=== PATIENT | female | born 1940 | race Caucasian/White ===

== ENCOUNTER 2016-08-27 10:47 | Emergency (ER) | payer MEDICARE, BC ==
[2016-08-27] MEDS ORDERED: PANTOPRAZOLE SODIUM IV 40 MG VIAL IV ONE (12:24)
--- NOTE | 2016-08-27 13:51 | CT ---
EXAM DESCRIPTION: CT ABDOMEN AND PELVIS WITH CONTRAST CLINICAL HISTORY: LLQ AB PAIN, GI BLEEDING COMPARISON: I directly compared with CT chest dated April 12, 2015 TECHNIQUE: CT of the abdomen and pelvis are performed during IV bolus administration of 100 mL of IV contrast. FINDINGS: The lung bases are clear of infiltrate. The liver is diffusely inhomogeneous in density consistent with geographic fatty infiltration. This is stable since 2015. There is no focal hepatic mass. Gallbladder is present and unremarkable by CT. Spleen, pancreas, and kidneys are unremarkable. There is no lymphadenopathy, inflammation, or free fluid observed. IMPRESSION: 1. Geographic fatty infiltration of the liver stable since remote previous 2. Otherwise unremarkable Electronically signed by: Rogelio Mena MD 08/27/2016 1:51 PM AMBULANCE DRIVER
--- NOTE | 2016-08-27 14:45 | ED.PDOC ---
History of Present Illness - General Chief Complaint: GI Problem Stated Complaint: blood streaked stool since saturday Time Seen by Provider: 08/27/16 12:22 Information Source: patient Exam Limitations: no limitations - History of Present Illness Initial Comments: 75 YEAR OLD FEMALE ON XARELTO FOR AFIB REPORTS SEVERAL EPISODES OF BLOODY STOOLS OVER THE PAST 3 DAYS. PT DENIES, ABDOMINAL PAIN, DIZZINESS, OR SYNCOPE. Improving Factors: nothing Worsening Factors: nothing Review of Systems - Review of Systems Constitutional: Denies: chills, fever EENTM: Denies: blurred vision, throat pain Respiratory: Denies: cough, short of breath Cardiology: Denies: chest pain, palpitations Gastrointestinal/Abdominal: Denies: abdominal pain, diarrhea, nausea, vomiting Musculoskeletal: Denies: joint pain, joint swelling Neurological: States: no symptoms reported Endocrine: States: no symptoms reported Hematologic/Lymphatic: States: no symptoms reported Past Medical History (General) - Patient Medical History Hx Seizures: No Hx Stroke: No Hx Dementia: No Hx Asthma: No Hx of COPD: No Hx Cardiac Disorders: Yes - AFIB Hx Congestive Heart Failure: No Hx Pacemaker: No Hx Hypertension: Yes Hx Thyroid Disease: No Hx Diabetes: No Hx Gastroesophageal Reflux: No Hx Renal Disease: No Hx Cancer: No Hx of HIV: No Hx Hepatitis C: No Hx MRSA: No Surgical History: appendectomy, cholecystectomy, Hysterectomy - Vaccination History Hx Tetanus, Diphtheria Vaccination: Yes Hx Influenza Vaccination: Yes Hx Pneumococcal Vaccination: Yes Immunizations Up to Date: Yes - Social History Hx Tobacco Use: No Hx Chewing Tobacco Use: No Hx Alcohol Use: No Hx Substance Use: No Hx Substance Use Treatment: No Hx Depression: No Feels Threatened In Home Enviroment: No Feels Threatened In a Relationship: No Hx Physical Abuse: No Hx Emotional Abuse: No Hx Suspected Abuse: No - Female History Patient is a Female of Child Bearing Age (10 -59 yrs old): No Patient : No Family Medical History - Family History Mother Family History: No Known Living Status: Physical Exam - Physical Exam General Appearance: Alert, Comfortable, No apparent distress Eyes, Ears, Nose, Throat Exam: normal ENT inspection Neck: full range of motion, normal inspection Respiratory: lungs clear, normal breath sounds, no respiratory distress Cardiovascular/Chest: regular rate, rhythm, no murmur Gastrointestinal/Abdominal: soft, tenderness - LLQ ABDOMINAL TENDERNESS Rectal Exam: heme positive stool - GROSS BLOOD ON GLOVE Back Exam: normal inspection, no CVA tenderness Extremity: non-tender, normal inspection Neurologic: no motor/sensory deficits, alert, normal mood/affect, oriented x 3 Skin Exam: normal color, warm/dry Progress - Progress Progress: 08/27/16 14:46 PT CONTINUES TO REST COMFORTABLY, LABS AND CT FINDINGS DISCUSSED WITH PT. PT AGREES WITH PLAN TO TRANSFER TO [facility] FOR GI CONSULTATION FOR GI BLEEDING - Results/Orders Results/Orders: Laboratory Tests 08/27/16 08/27/16 11:55 13:50 WBC 6.4 RBC 3.61 L Hgb 11.6 L Hct 34.8 L MCV 96.2 MCH 32.1 H MCHC 33.4 RDW 13.9 Plt Count 164 MPV 8.5 Absolute Neuts (auto) 3.60 Absolute Lymphs (auto) 2.00 Absolute Monos (auto) 0.70 Absolute Eos (auto) 0.10 Absolute Basos (auto) 0.10 Neutrophils % 56.5 Lymphocytes % 30.8 Monocytes % 10.2 H Eosinophils % 1.7 Basophils % 0.8 PT 19.2 H INR 1.710 PTT (SP) 41.5 H Sodium 140 Potassium 4.3 Chloride 104 Carbon Dioxide 29 Anion Gap 11.3 L BUN 19 H Creatinine 0.82 BUN/Creatinine Ratio 23.2 H Random Glucose 108 H Serum Osmolality 282.2 Calcium 8.8 Total Bilirubin 0.4 AST 45 H ALT 51 Alkaline Phosphatase 47 Serum Total Protein 7.3 Albumin 3.6 Globulin 3.7 H Albumin/Globulin Ratio 1.0 L Stool Occult Blood Positive - EKG/XRAY/CT CT: CT ABD/PEL: FATTY LIVER PER RAD CT Ordered: Yes CT Interpretation Call Back: No Departure - Departure Clinical Impression: GI bleeding Qualifiers: GI bleed type/associated pathology: unspecified gastrointestinal hemorrhage type Qualifier Code: (K92.2) Gastrointestinal hemorrhage, unspecified Time of Disposition: 14:49 Disposition: Transfer to Hospital Condition: Good Departure Forms: ED Discharge - Pt. Copy, Patient Portal Self Enrollment Home Medications: Ambulatory Orders Alprazolam 0.5 mg PO BID 07/15/13 Atenolol 25 mg PO DAILY 07/15/13 B-Complex W/ Folic Acid [Super B Complex Maxi] 1 tab PO DAILY 07/15/13 Clorazepate Dipotassium 3.75 mg PO BEDTIME 07/15/13 HYDROcodone 5MG/APAP 325MG [[place] 5/325] 1 tab PO BEDTIME 07/15/13 Levothyroxine Sodium 125 mcg PO DAILY 07/15/13 Simvastatin 20 mg PO BEDTIME 07/15/13 Cholecalciferol [Vitamin D] 2,000 unit PO DAILY 01/28/16 Rivaroxaban [Xarelto] 20 mg PO BEDTIME 01/28/16 Estradiol 0.5 mg PO DAILY 03/27/16 Eszopiclone [Lunesta] 3 mg PO BEDTIME PRN 03/27/16 Cephalexin Monohydrate [Keflex] 500 mg PO BID #18 cap 03/29/16 Sotalol HCl [Betapace] 80 mg PO Q12HR #60 tab 03/29/16 Rivaroxaban [Xarelto] 20 mg PO 08/27/16 Transfer to Outside Facility - Transfer Information Accepting Provider:: DR. Waqas GAN Accepting Facility: [facility] Reason for Transfer: specialized care not available
[2016-08-27] MEDS ORDERED: SODIUM CHLORIDE 0.9% 1000ML 1,000 ML IVS ONE (14:50)
[2016-08-27 15:36] VITALS: TEMP 97
[2016-08-27 16:06] VITALS: BP 131/74; O2SAT 98
== END 2016-08-27 16:04 | disposition short-term general hospital (02) ==
LOC: ER 10:47
DX: K92.2 Gastrointestinal hemorrhage, unspecified (principal); I48.91 Unspecified atrial fibrillation; I10 Essential (primary) hypertension; Z79.02 Long term (current) use of antithrombotics/antiplatelets; Z79.899 Other long term (current) drug therapy
CPT/HCPCS: 36415; 74177; 80053; 82270; 85025; 85610; 85730; J7030

== ENCOUNTER 2016-09-21 10:48 | Inpatient (IN) | payer MEDICARE, BC ==
--- NOTE | 2016-09-21 10:51 | HP ---
SUPERVISING PHYSICIAN: Alex Quesada M.D. CHIEF COMPLAINT: Worsening pneumonia. HISTORY OF PRESENT ILLNESS: Ms. Mancini is a 75 year-old female patient of Dr. Le who was seen this past week in the clinic for upper respiratory symptoms diagnosed with right middle lobe pneumonia and having been started on Omnicef this past Saturday. She notes that she first started getting ill on the Saturday before her clinic visit and has shown very little improvement in her symptoms throughout the week with worsening cough as well as significant fever of 102 in the clinic. She notes that she has been in and out of the hospital since May and within the last 2 weeks at [facility]. Given that she has no significant improvement in her symptoms and continues to run a significant fever, she is now going to be admitted to the hospital for continued treatment and evaluation for escalation of her antibiotic therapy with concerns for right middle lobe pneumonia felt to be possibly healthcare acquired. PAST MEDICAL HISTORY: 1. Paroxysmal atrial fibrillation that was controlled initially with Rythmol and Atenolol after which she developed chronic atrial fibrillation in 2003. She underwent multiple cardioversions and ablation therapy with the last ablation being done on 07/13/16. The patient is on chronic anticoagulation with Xarelto. 2. Chronic obstructive pulmonary disease with an exacerbation with multiple hospitalizations required for pneumonia. 3. Hypothyroidism. 4. Chronic anxiety disorder controlled with Xanax and Chlorazepate. 5. Hyperlipidemia. 6. Osteoarthritis. 7. Hypertension. PAST SURGICAL HISTORY: 1. Tonsillectomy. 2. section times 4 in 1959, 1962, 1964 and 1965. 3. Hysterectomy in 1975. 4. Left knee replacement in 2007. 5. Excision of a squamous cell carcinoma in 2009. 6. Lumbar epidural steroid injection at L3-L4 by Dr. Stephen in 2010. 7. Hemilaminectomy at L4-L5 and decompression of L5 roots with foraminotomies at L4-L5 and L5-S1, excision of herniated nucleus pulposus by Dr. Jay Zacarias in 2011. 8. Right total hip arthroplasty performed by Dr. Guajardo in 2011. 9. Multiple ablations for paroxysmal atrial fibrillation with the last being in June of 2016. CURRENT MEDICATIONS: 1. Pantoprazole 40 mg twice daily. 2. Vitamin D 2,000 units daily. 3. Algin 4 mg daily. 4. Tramadol 50 mg at bedtime p.r.n. 5. Zaleplon 10 mg at bedtime. 6. Diltiazem 180 mg daily. 7. Lyrica 50 mg at bedtime. 8. Proventil nebs 2.5 mg t.i.d. 9. Breo ellipta 1 inhalation daily. 10. Betapace 80 mg every 12 hours. 11. Simvastatin 20 mg at bedtime. 12. Xarelto 20 mg daily at 5:00. 13. Levothyroxine sodium 0.125 mg at breakfast. 14. Estradiol 0.5 mg. 15. Super B complex folic acid 1 tablet daily. 16. Atenolol 25 mg daily. 17. Alprazolam 0.5 mg twice daily. ALLERGIES: LEVOFLOXACIN, CODEINE, CORTICOSTEROIDS, ZITHROMAX, NEURONTIN, PRADAXA AND SULFATE. FAMILY HISTORY: Father is at age 88, cause of was congestive heart failure, cardiovascular disease with coronary artery bypass graft at age 60 and again at 76, and hip fracture. Mother is at age 93, cause of was Alzheimer's, also had history of breast cancer. SOCIAL HISTORY: The patient is retired. She lives in [place]. She is . She has 3 children. She notes that she did smoke half pack of cigarettes for approximately 50 years but quit on 06/2013. She never drank alcohol. REVIEW OF SYSTEMS: CONSTITUTIONAL: Notable for fever and chills up to 102, denies any weight loss. HEENT: Positive for upper respiratory symptoms with some nasal congestion and a nonproductive cough. CARDIOVASCULAR: Paroxysmal atrial fibrillation with multiple ablations in the past. Denies any chest pains , palpitations or syncopal episodes. GASTROINTESTINAL: Denies any nausea or vomiting, diarrhea, constipation or abdominal pains. GENITOURINARY: Denies any dysuria, increased frequency of urination or other urinary symptoms. NEUROLOGIC : Denies any dizziness, syncopal episodes or other neurological symptoms. PHYSICAL EXAMINATION: VITAL SIGNS: Temperature 98.5, pulse 81, blood pressure 131/69, respirations 18 , O2 sat showing 90% on room air. Admission weight is 75.2 kg. GENERAL: The patient is resting in bed. She is in no acute distress. She is somewhat anxious. Alert and oriented times three. HEENT: Tympanic membranes are clear bilaterally. Oropharynx in pink and moist without any lesions. NECK: No jugular venous distention. CHEST: Lung sounds are notable for some mild rhonchi over the right posterior aspect with diminished breath sounds bilaterally to the bases. No wheezing or rales are noted. CARDIOVASCULAR: Regular rate and rhythm without appreciable murmurs, gallops, or rubs. ABDOMEN: Soft, non-tender. Positive bowel sounds. EXTREMITIES: No cyanosis, clubbing or edema. NEUROLOGIC: Cranial nerves II-XII are grossly intact. She is alert and oriented times three. Facial features are symmetrical. Extraocular movements are within normal limits. There is no nystagmus. There is no discernible focal motor or sensory deficits. LABORATORY: On admission, white count 9.8, hemoglobin 10.2, hematocrit 31.0, platelet count 190,000. Differential was without a left shift. Coagulation studies showed PT 20.8, INR 1.85, PTT 40.3. Chemistries showed normal electrolytes with potassium 4.1, BUN 15, creatinine 0.8, glucose 109. Liver functions showed to be within normal limits. Urinalysis showed to be within normal limits. She had a Group A Strep by PCR that was negative. MICROBIOLOGY: She had a flu swab A and B by PCR that were both negative. Group A Strep was pending. Blood cultures pending. Sputum culture pending. RADIOLOGY: Chest x-ray performed in [facility] prior to admission per review and per discussion with Dr. Le shows a consolidative process in the right middle lobe that has actually worsened from comparisons of initial x-rays earlier in the week. ASSESSMENT: 1. Acute exacerbation of chronic obstructive pulmonary disease with right middle lobe pneumonia possibly healthcare acquired having failed to respond to outpatient treatment plan that included Omnicef and bronchodilators. 2. History of paroxysmal atrial fibrillation with multiple cardioversions and ablation procedures now showing normal sinus rhythm currently on Cardizem, Atenolol and Xarelto. 3. Chronic anxiety disorder controlled with Xanax and Clonazepam. 4. Hypothyroidism on supplementation. 5. Hypertension. 6. Osteoarthritis. 7. Febrile illness with T max of 102 prior to admission through the clinic with the patient being recently placed on oxygen at night for continued hypoxia. PLAN: The patient will be admitted to the hospital directly from Dr. Le' clinic for continuation of treatment and evaluation with concerns for worsening right middle lobe pneumonia that was likely healthcare acquired. Given that she had been on Cefdinir and had respond minimally, will go ahead and start her on Meropenem with concerns that this may be a hospital acquired infection, possibly Pseudomonas with sputum cultures pending. Will continue to provide bronchial hygiene to include CPT, incentive spirometry and Xopenex breathing treatments along with p.r.n. treatments as needed. Will anticipate length of stay to be 2 to 3 days. Until then, will continue to monitor the patient closely and treat appropriately. Plan to reevaluate in the morning with laboratory studies to include CBC and BMP along with a repeat two view chest x- ray. #[id number] [facility]
[2016-09-21] MEDS ORDERED: ACETAMINOPHEN 325 MG TAB PO PRN (12:25)
[2016-09-21] MEDS ORDERED: SODIUM CHLORIDE 0.9% (FLUSH) 10 ML SYG IV PRN (12:25)
[2016-09-21] MEDS ORDERED: IV SET AND CAP CHANGE INJ INJ SCH (12:30)
[2016-09-21] MEDS ORDERED: traMADol HCL 50 MG TAB PO PRN (12:47)
[2016-09-21] MEDS ORDERED: SODIUM CHL 0.9% 50ML MIN-BAG+ 50 ML IVPB ONE ×3 (13:33→20:18)
[2016-09-21] MEDS ORDERED: MEROPENEM 500 MG VIAL IVPB ONE ×3 (13:33→20:19)
[2016-09-21] MEDS: MEROPENEM 500 MG in SODIUM CHL 0.9% 50ML MIN-BAG+ 50 ML IVPB SCH ×2 (13:44→20:38)
[2016-09-21] MEDS ORDERED: RIVAROXABAN 10 MG TAB ONE (14:43)
[2016-09-21] MEDS ORDERED: ESTRADIOL TAB 1 MG PO ONE (14:43)
[2016-09-21] MEDS: LEVALBUTEROL NEBS 1.25 MG/3 ML VIAL INH SCH ×2 (16:02→23:54)
[2016-09-21] MEDS: ESTRADIOL TAB 1 MG PO SCH (16:42)
[2016-09-21] MEDS: RIVAROXABAN 10 MG TAB PO SCH (16:43)
[2016-09-21] MEDS: PANTOPRAZOLE SODIUM TAB 40 MG PO SCH (16:43)
[2016-09-21] MEDS ORDERED: LEVOTHYROXINE SODIUM 0.025 MG TAB ONE (20:17)
[2016-09-21] MEDS ORDERED: LEVOTHYROXINE SODIUM 0.1 MG TAB ONE (20:17)
[2016-09-21] MEDS: ZALEPLON 10 MG PO SCH (20:38)
[2016-09-21] MEDS: SOTALOL 80 MG TAB PO SCH (20:39)
[2016-09-21] MEDS: SIMVASTATIN 10 MG TAB PO SCH (20:39)
[2016-09-21] MEDS: SODIUM CHLORIDE 0.9% (FLUSH) 10 ML SYG IV SCH (20:39)
[2016-09-21] MEDS: PREGABALIN 25 MG CAP PO SCH (20:39)
[2016-09-21] MEDS: ALPRAZolam 0.5 MG TAB PO SCH (20:39)
[2016-09-21] MEDS ORDERED: SIMVASTATIN 20 MG TAB PO SCH (21:00)
[2016-09-22] MEDS: MEROPENEM 500 MG in SODIUM CHL 0.9% 50ML MIN-BAG+ 50 ML IVPB SCH ×3 (04:55→20:40)
[2016-09-22] MEDS: PANTOPRAZOLE SODIUM TAB 40 MG PO SCH ×2 (06:09→17:00)
[2016-09-22] MEDS: LEVOTHYROXINE SODIUM 0.025 MG TAB PO SCH (06:09)
[2016-09-22] MEDS: LEVOTHYROXINE SODIUM 0.1 MG TAB PO SCH (06:10)
[2016-09-22] MEDS ORDERED: NON-FORMULARY MEDICATION 1 EA MIS (Levothyroxine Sodium [Levothyroxine Sodium] 125 MCG) PO SCH (07:00)
--- NOTE | 2016-09-22 07:33 | RAD ---
Clinical History : Pneumonia , MAIN Exam : PA and lateral views of the chest 09/22/2016 7:00 AM CDT Comparisons : PA and lateral views of the chest June 02, 2015 Findings : There is patchy right middle lobe airspace disease. The rest the lungs remain largely clear. . The heart is normal in size. The mediastinal contours are normal in appearance. The thoracic spine is age appropriate. The shoulders are unremarkable. Limited evaluation of the upper abdomen demonstrates no gross abnormalities. Impression: Right middle lobe airspace disease. Electronically signed by: Mikhail Virk MD 09/22/2016 7:33 AM CDT
[2016-09-22] MEDS ORDERED: diltiaZEM HCL CD 180 MG CAP ONE (08:01)
[2016-09-22] MEDS ORDERED: BIFIDOBACTERIUM INFANTIS 4 MG CAP ONE (08:01)
[2016-09-22] MEDS: LEVALBUTEROL NEBS 1.25 MG/3 ML VIAL INH SCH (08:50)
[2016-09-22] MEDS: NON-FORMULARY MEDICATION 1 EA MIS (Fluticasone Furoate-Vilanterol [Breo Ellipta 100-25 Mcg INH SCH (08:50)
[2016-09-22] MEDS: ATENOLOL 25 MG TAB PO SCH (09:37)
[2016-09-22] MEDS: BIFIDOBACTERIUM INFANTIS 4 MG CAP PO SCH (09:37)
[2016-09-22] MEDS: ALPRAZolam 0.5 MG TAB PO SCH ×2 (09:37→20:40)
[2016-09-22] MEDS: CHOLECALCIFEROL 2,000 IU TAB PO SCH (09:37)
[2016-09-22] MEDS: SODIUM CHLORIDE 0.9% (FLUSH) 10 ML SYG IV SCH ×2 (09:38→20:39)
[2016-09-22] MEDS: diltiaZEM HCL CD 180 MG CAP PO SCH (09:38)
[2016-09-22] MEDS: SOTALOL 80 MG TAB PO SCH ×2 (09:42→20:40)
[2016-09-22] MEDS ORDERED: MEROPENEM 500 MG VIAL IVPB ONE ×3 (13:24→19:33)
[2016-09-22] MEDS ORDERED: SODIUM CHL 0.9% 50ML MIN-BAG+ 50 ML IVPB ONE ×3 (13:24→19:33)
[2016-09-22] MEDS: ESTRADIOL TAB 1 MG PO SCH (17:46)
[2016-09-22] MEDS: RIVAROXABAN 10 MG TAB PO SCH (17:49)
[2016-09-22] MEDS: ZALEPLON 10 MG PO SCH (20:39)
[2016-09-22] MEDS: SIMVASTATIN 10 MG TAB PO SCH (20:40)
[2016-09-22] MEDS: PREGABALIN 25 MG CAP PO SCH (20:40)
[2016-09-22] MEDS: LEVALBUTEROL NEBS 1.25 MG/3 ML VIAL INH PRN (20:45)
[2016-09-23] MEDS: LEVALBUTEROL NEBS 1.25 MG/3 ML VIAL INH PRN (01:00)
[2016-09-23] MEDS: MEROPENEM 500 MG in SODIUM CHL 0.9% 50ML MIN-BAG+ 50 ML IVPB SCH ×3 (05:26→20:48)
[2016-09-23] MEDS: LEVOTHYROXINE SODIUM 0.025 MG TAB PO SCH (06:25)
[2016-09-23] MEDS: LEVOTHYROXINE SODIUM 0.1 MG TAB PO SCH (06:25)
[2016-09-23] MEDS: PANTOPRAZOLE SODIUM TAB 40 MG PO SCH ×2 (06:25→17:00)
[2016-09-23] MEDS: LEVALBUTEROL NEBS 1.25 MG/3 ML VIAL NEB SCH ×3 (08:50→20:54)
[2016-09-23] MEDS: NON-FORMULARY MEDICATION 1 EA MIS (Fluticasone Furoate-Vilanterol [Breo Ellipta 100-25 Mcg INH SCH (08:50)
[2016-09-23] MEDS: ALPRAZolam 0.5 MG TAB PO SCH ×2 (08:52→20:48)
[2016-09-23] MEDS: CHOLECALCIFEROL 2,000 IU TAB PO SCH (08:52)
[2016-09-23] MEDS: SOTALOL 80 MG TAB PO SCH ×2 (08:52→20:53)
[2016-09-23] MEDS: BIFIDOBACTERIUM INFANTIS 4 MG CAP PO SCH (08:52)
[2016-09-23] MEDS: ATENOLOL 25 MG TAB PO SCH (08:52)
[2016-09-23] MEDS: diltiaZEM HCL CD 180 MG CAP PO SCH (08:52)
[2016-09-23] MEDS: SODIUM CHLORIDE 0.9% (FLUSH) 10 ML SYG IV SCH ×2 (08:53→20:53)
[2016-09-23] MEDS ORDERED: SODIUM CHL 0.9% 50ML MIN-BAG+ 50 ML IVPB ONE ×2 (12:40→19:22)
[2016-09-23] MEDS ORDERED: MEROPENEM 500 MG VIAL IVPB ONE ×2 (12:40→19:24)
[2016-09-23] MEDS: RIVAROXABAN 10 MG TAB PO SCH (17:27)
[2016-09-23] MEDS: ESTRADIOL TAB 1 MG PO SCH (17:28)
[2016-09-23] MEDS ORDERED: LEVALBUTEROL NEBS 1.25 MG/3 ML VIAL INH SCH (20:39)
[2016-09-23] MEDS: PREGABALIN 25 MG CAP PO SCH (20:48)
[2016-09-23] MEDS: SIMVASTATIN 10 MG TAB PO SCH (20:48)
[2016-09-23] MEDS: ZALEPLON 10 MG PO SCH (20:49)
[2016-09-24] MEDS ORDERED: SODIUM CHL 0.9% 50ML MIN-BAG+ 50 ML IVPB ONE (04:23)
[2016-09-24] MEDS ORDERED: MEROPENEM 500 MG VIAL IVPB ONE (04:24)
[2016-09-24] MEDS: MEROPENEM 500 MG in SODIUM CHL 0.9% 50ML MIN-BAG+ 50 ML IVPB SCH (04:39)
[2016-09-24] MEDS: LEVOTHYROXINE SODIUM 0.1 MG TAB PO SCH (06:13)
[2016-09-24] MEDS: LEVOTHYROXINE SODIUM 0.025 MG TAB PO SCH (06:13)
[2016-09-24] MEDS: PANTOPRAZOLE SODIUM TAB 40 MG PO SCH (06:13)
--- NOTE | 2016-09-24 07:22 | RAD ---
EXAM DESCRIPTION: Chest,2 Views CLINICAL HISTORY: RML pneumonia COMPARISON: 09/22/2016 TECHNIQUE: Two-views of the chest. FINDINGS: Normal cardiomediastinal silhouette. Minimal linear increased density overlies the heart in the lateral projection, likely subsegmental atelectasis medial segment right middle lobe. There is also some anterior basilar left lower lobe opacity/subsegmental atelectasis.. No pulmonary edema or dense alveolar consolidation. No pleural effusion. Lungs are mildly hyperinflated IMPRESSION: Similar appearance as on prior study with regions of subsegmental atelectasis right middle lobe and left lower lobe Mild hyperinflation Electronically signed by: Alex Del Castillo MD 09/24/2016 7:22 AM CDT
--- NOTE | 2016-09-24 08:46 | PN ---
SUPERVISING PHYSICIAN: Cherise Quesada MD DATE: 09-22-16 SUBJECTIVE: The patient continues to have a cough, she continues to remain afebrile since admission and is showing some improvement. Her heart rate remains in normal sinus rhythm. OBJECTIVE: VITAL SIGNS: Temperature 98.8, pulse 72, blood pressure 121/60, respirations 18, saturation 90% on room air. Weight 76.2 kg. CHEST: Lungs are improving in regards to aeration. There is still some diminished towards the basis, more so notable on the right than left with the right being noted for some mild rhonchi but no wheezing. HEART regular rate and rhythm. ABDOMEN soft, bowel sounds are positive. EXTREMITIES: No cyanosis , clubbing, or edema. NEUROLOGICAL: She is alert and oriented x 3. LABORATORY: White count 8.9, hemoglobin 9.9, hematocrit 30.0 with platelet count of 194,000, differential shows to be within normal limits. Chemistries showed normal electrolytes with potassium of 3.9, BUN 12, creatinine 0.92, glucose 128, calcium 8.3. MICROBIOLOGY: Blood cultures remained negative at 48 hours. Group A strep showed no group A strep isolated at 48 hours. Sputum culture showed normal johnny at 24 hours. RADIOLOGY: Chest x-ray 2 view per radiology interpretation continues to show right middle lobe air space disease.. ASSESSMENT: 1. Acute exacerbation of chronic obstructive pulmonary disease with right middle lobe pneumonia most likely healthcare acquired having failed to respond to outpatient treatment plan that included initially Omnicef and bronchodilators showing improvement after patient was started on Meropenem. 2. History of paroxysmal atrial fibrillation with multiple cardioversions and ablation procedures continuing to show normal sinus rhythm currently on Cardizem, Atenolol and Xarelto. 3. Chronic anxiety disorder controlled with Xanax and Clonazepam. 4. Hypothyroidism on supplementation. 5. Hypertension. 6. Osteoarthritis. 7. Febrile illness on admission with T max of 102 prior to admission in the clinic with the patient continuing to require oxygen at night due to hypoxia, with patient remaining afebrile now for 24 hours felt to be secondary to her underlying right middle lobe pneumonia. PLAN: Will continue with current plan of care to include meropenem as the patient is continuing to show improvement. Will encourage ambulation and continuation with her incentive spirometry and start her on CPT for continued bronchial hygiene. Will plan to reevaluate in the morning with CBC and BNP. Anticipate discharge either tomorrow or Saturday. Until then, continue to monitor and treat patient appropriate. #[id number] [facility]
[2016-09-24] MEDS: LEVALBUTEROL NEBS 1.25 MG/3 ML VIAL NEB SCH (09:17)
[2016-09-24] MEDS: ALPRAZolam 0.5 MG TAB PO SCH (09:31)
[2016-09-24] MEDS: BIFIDOBACTERIUM INFANTIS 4 MG CAP PO SCH (09:31)
[2016-09-24] MEDS: diltiaZEM HCL CD 180 MG CAP PO SCH (09:32)
[2016-09-24] MEDS: SOTALOL 80 MG TAB PO SCH (09:32)
[2016-09-24] MEDS: ATENOLOL 25 MG TAB PO SCH (09:32)
[2016-09-24] MEDS: CHOLECALCIFEROL 2,000 IU TAB PO SCH (09:32)
[2016-09-24] MEDS: SODIUM CHLORIDE 0.9% (FLUSH) 10 ML SYG IV SCH (09:54)
--- NOTE | 2016-09-24 10:15 | PN ---
SUPERVISING PHYSICIAN: Cherise Quesada MD DATE: 09/23/16 SUBJECTIVE: The patient is doing much better today. She continues to have more productive sputum. She has been afebrile now for 48 hours. She has had no nausea, vomiting or diarrhea. OBJECTIVE: VITAL SIGNS: T-max 98.4. Pulse 72. Blood pressure 106/61. Respirations 20. O2 sat 97% on room air. I&Os show positive balance of 550 with 1200 in, 650 out. She has had one bowel movement. CHEST: Lungs are much better aerated today. She still has some faint rhonchi on the right posterior aspect of the right lobe with bases being somewhat diminished, but there is no wheezing noted. HEART: Regular rate and rhythm. ABDOMEN: Soft, nontender. Positive bowel sounds. EXTREMITIES: No cyanosis, clubbing or edema. NEUROLOGIC: Alert and oriented times three. LABORATORY: White count 8.6, hemoglobin 10, hematocrit 30.5, platelet count 212 ,000, differential without left shift. Chemistries today showed normal electrolytes with potassium 4.3, BUN 14, creatinine 0.91. Calcium 8.4. MICROBIOLOGY: Blood cultures remain negative at 48 hours. Group A Streptococcus showed no growth at 48 hours. Sputum culture showed normal johnny at 24 hours. RADIOLOGY: There are no new chest x-rays today for review. ASSESSMENT: 1. Acute exacerbation of chronic obstructive pulmonary disease with right middle lobe pneumonia, likely healthcare acquired as the patient failed to respond to outpatient treatment plan that included Omnicef and bronchodilators with the patient having a significant history of recent hospitalization. 2. History of paroxysmal atrial fibrillation with multiple cardioversions and ablation procedures, no showing normal sinus rhythm, currently on Cardizem, Atenolol and Xarelto. 3. Chronic anxiety disorder controlled with Xanax and Clonazepam. 4. Hypothyroidism on supplementation. 5. Hypertension. 6. Osteoarthritis. 7. Febrile illness on admission with T-max of 102 initially, now afebrile for 48 hours with the patient wearing oxygen at night for continued hypoxia. PLAN: The patient will be continued with meropenem antibiotic q.8h today along with CPT and aggressive pulmonary hygiene. Still concern that her pneumonia is more hospital acquired than community with concern for Pseudomonas, but sputum culture showed no growth. She is showing improvement. Anticipate hopefully discharge tomorrow to continue with outpatient antibiotic therapy and have close clinical followup with Dr. Le. Until discharge, we will continue to monitor the patient closely and treat appropriately and repeat CBC, BMP and chest x-ray in the morning. [id number] [facility]
[2016-09-24 11:17] VITALS: BP 134/80; TEMP 98.5; O2SAT 93
--- NOTE | 2016-09-25 10:51 | DS ---
SUPERVISING PHYSICIAN: Ollie Mera MD DISCHARGE DIAGNOSIS: 1. Acute exacerbation of chronic obstructive pulmonary disease with right middle lobe pneumonia, likely healthcare acquired, as the patient failed to respond to outpatient treatment plan that included Omnicef and bronchodilators with the patient having a significant history of recent hospitalization. 2. History of paroxysmal atrial fibrillation with multiple cardioversions and ablation procedures, showing normal sinus rhythm on admission, currently on Cardizem, Atenolol and Xarelto. 3. Chronic anxiety disorder, controlled with Xanax and Clonazepam. 4. Hypothyroidism on supplementation. 5. Hypertension. 6. Osteoarthritis. 7. Febrile illness with T-max of 102, being afebrile 48 hours prior to discharge, secondary to the underlying right middle lobe pneumonia requiring oxygen at night to prevent hypoxemia. HISTORY OF PRESENT ILLNESS: Ms. Mancini is a 75-year-old female patient of Dr. Le who was seen the previous week in the clinic for upper respiratory symptoms and diagnosed with right middle lobe pneumonia and having been started on Omnicef the Saturday prior to admission. She noted that she first started getting ill on the Saturday before her clinic visit and had shown very little improvement in her symptoms throughout the week after she started treatment with worsening cough as well as significant fever of 102 in the clinic. She notes that she has been in and out of the hospital since May and within the last 2 weeks at [facility]. Given that she has no significant improvement in her symptoms and continues to run a significant fever , she was admitted to the hospital for continued treatment and evaluation for escalation of her antibiotic therapy with concerns for right middle lobe pneumonia felt to be possibly healthcare related. LABORATORY: Initial white count on admission was 9.8. She did stay within normal limits through admission and at time of discharge, white count was 7.7. Hemoglobin and hematocrit were stable at 10.3 and 31.6 at discharge. Platelet count 244,000. Differential without a left shift. Coagulation studies showed an elevated PT of 20.8, INR 1.85, PT-T40.3. Chemistries showed normal electrolytes on admission and remained within normal limits. At time of discharge, potassium was 4.2, BUN 12, creatinine 0.84. Liver functions were all within normal limits. Urine on admission was within normal limits. Group A strep was negative by PCR. MICROBIOLOGY: Sputum culture final showed reduced normal johnny. Influenza by PCR was negative for A and B. Two sets of blood cultures remained negative after three days. RADIOLOGY: Chest x-ray after admission per radiology interpretation indicated right middle lobe airspace disease. This was followed up with a chest x-ray on 09/24/16 prior to discharge on that morning and per radiology interpretation showed similar appearance as on prior study with regions of subsegmental atelectasis, right middle lobe and left lower lobe, mild hyperinflation. HOSPITAL COURSE: Ms. Mancini was admitted as noted in history of present illness for right middle lobe pneumonia having to respond to outpatient treatment plan. She was on Omnicef initially on admission. Given that she has an allergy to levofloxacin and corticosteroids, it was contraindicated to utilize azithromycin. She was started on meropenem with concerns that she may have an underlying health care pneumonia, mainly concerns for pseudomonal infection. She was provided aggressive pulmonary hygiene and progressed well clinically after initiation of antibiotics with aggressive pulmonary rehab including CPT. She was able to clear some sputum out, but no significant growth was noted on sputum culture. She did have a fever initially prior to admission in the clinic and at time of admission to the Medical/Surgical Floor, she had a temperature of 96.6, but she was satting 90% on room air. It was noted she does wear oxygen at night. After treatment and completion of therapy during the hospitalization, she remained afebrile with blood pressure at time of discharge of 134/80, respirations 18, saturation 93% on room air. She continued on meropenem with no complications, no diarrhea and progressed clinically to the point on discharge that she was felt stable enough to be discharged to continue with outpatient treatment plan. PLAN: Ms. Mancini was discharged on 09/24/16 with instructions to followup with Dr. Le as scheduled on 10/01/16 at 9:15 AM. She was to resume home medications except as modified and instructed. She was to take the Omnicef as previous to admission to completion. She was encouraged to utilize oxygen at home with 2 liter nasal cannula at night as directed previously from previous hospitalizations. She was told to return to the hospital if her symptoms failed to improve or she had any worsening of her condition. At time of discharge, she had prescription for continuation of her cefdinir as prior to admission, which was 300 mg twice daily for a total of 10 days. She was to continue with oxygen and breathing treatments as prior to admission. At time of discharge, the patient was stable. #[id number] [facility]
== END 2016-09-24 13:45 | disposition home or self-care (01) | DRG 190 ==
LOC: MS 10:48
PROVIDERS: ADMIT Nurse Practitioner Family; ATTEND Nurse Practitioner Family
DX: J44.0 Chronic obstructive pulmonary disease with (acute) lower respiratory infection (principal); J18.9 Pneumonia, unspecified organism; J44.1 Chronic obstructive pulmonary disease with (acute) exacerbation; I48.0 Paroxysmal atrial fibrillation; F41.9 Anxiety disorder, unspecified; E03.9 Hypothyroidism, unspecified; E78.5 Hyperlipidemia, unspecified; I10 Essential (primary) hypertension; M19.90 Unspecified osteoarthritis, unspecified site; Z79.01 Long term (current) use of anticoagulants; Z79.899 Other long term (current) drug therapy; Y95 Nosocomial condition; Z96.652 Presence of left artificial knee joint; Z96.641 Presence of right artificial hip joint; Z88.1 Allergy status to other antibiotic agents; Z88.5 Allergy status to narcotic agent; Z88.8 Allergy status to other drugs, medicaments and biological substances; Z87.891 Personal history of nicotine dependence

== ENCOUNTER → 2016-10-01 | Outpatient (CLI) | payer MEDICARE, BC | END | disposition home or self-care (01) | LOC: GMAL 14:24 | PROVIDERS: ATTEND Family Medicine | DX: D50.9 Iron deficiency anemia, unspecified (principal) ==

== ENCOUNTER → 2016-10-16 | Outpatient (CLI) | payer MEDICARE | END | disposition home or self-care (01) | LOC: LAB.O 10:34 | DX: D50.9 Iron deficiency anemia, unspecified (principal) ==

== ENCOUNTER → 2016-10-22 | Outpatient (CLI) | payer MEDICARE | END | disposition home or self-care (01) | LOC: LAB.O 10:06 | DX: D50.9 Iron deficiency anemia, unspecified (principal) ==

== ENCOUNTER → 2016-10-29 | Outpatient (CLI) | payer MEDICARE | END | disposition home or self-care (01) | LOC: GMAL 14:37 | PROVIDERS: ATTEND Family Medicine | DX: D53.9 Nutritional anemia, unspecified (principal) ==

== ENCOUNTER → 2016-11-16 | Outpatient (CLI) | payer MEDICARE | END | disposition home or self-care (01) | LOC: LAB.O 10:12 | DX: D50.9 Iron deficiency anemia, unspecified (principal) ==

== ENCOUNTER → 2016-12-03 | Outpatient (CLI) | payer MEDICARE | END | disposition home or self-care (01) | LOC: LAB.O 14:03 | PROVIDERS: ATTEND Family Medicine | DX: D80.3 Selective deficiency of immunoglobulin G [IgG] subclasses (principal) ==

== ENCOUNTER → 2016-12-11 | Outpatient (CLI) | payer MEDICARE | LOC: LAB.O 14:59 | PROVIDERS: ATTEND Family Medicine | DX: D80.3 Selective deficiency of immunoglobulin G [IgG] subclasses (principal) ==

== ENCOUNTER → 2017-02-04 | Outpatient (CLI) | payer MEDICARE ==
--- NOTE | 2017-02-05 13:00 | MAM ---
EXAM DESCRIPTION: 3D Screening BILATERAL CLINICAL HISTORY: 76 yearsFemaleSCREENING. No complaints. Maternal grandmother with breast cancer. Hysterectomy in 1973. Currently on HRT. COMPARISON: prior. No prior reports available. Reports from prior examinations also reviewed. Report from prior examination also reviewed. TECHNIQUE: Bilateral CC and MLO projection full-field images, 3-D tomosynthesis digital mammographic technique. Also bilateral synthesized CC/ MLO full-field images. CAD not utilized. FINDINGS: The breast parenchymal density pattern is: Scattered areas of fibroglandular density. No skin thickening or nipple retraction multiple bilateral solitary microcalcifications. Bilateral vascular calcifications. No focal, stellate mass or density, focal asymmetry , and no suspicious microcalcifications bilaterally. Increased solitary microcalcifications bilaterally since the prior study. IMPRESSION: BI-RADS CATEGORY: 2 - BENIGN FINDINGS. FOLLOW UP: Routine digital bilateral screening, one year interval from January 2017. Written communication explaining the findings and follow-up, will be mailed to the patient and referring health care provider. According to the [employer], yearly mammograms are recommended starting at age 40 and continuing as long as a woman is in good health. Any breast change noted on a breast self-exam should be reported promptly to the patient's healthcare provider. Breast MRI is recommended for women with an approximately 20-25% or greater lifetime risk of breast cancer, including women with a strong family history of breast or ovarian cancer and women who have been treated for Hodgkin's disease. A negative mammographic report should not delay tissue diagnosis in patients with significant clinical history or physical findings. Extremely dense breast tissue limits the sensitivity of digital mammography. Electronically signed by: Edinson Neil MD 02/05/2017 12:59 PM CDT Workstation: [id number]
== END | disposition home or self-care (01) ==
LOC: MAMMO 09:59
PROVIDERS: ATTEND Family Medicine
DX: Z12.31 Encounter for screening mammogram for malignant neoplasm of breast (principal)
CPT/HCPCS: 77063; G0202

== ENCOUNTER → 2017-02-15 | Outpatient (CLI) | payer MEDICARE | END | disposition home or self-care (01) | LOC: LAB.O 11:13 | DX: D50.0 Iron deficiency anemia secondary to blood loss (chronic) (principal) ==

== ENCOUNTER → 2017-07-22 | Outpatient (CLI) | payer MEDICARE | LOC: GMAL 10:47 | PROVIDERS: ATTEND Family Medicine | DX: D51.3 Other dietary vitamin B12 deficiency anemia (principal); E03.8 Other specified hypothyroidism; E55.9 Vitamin D deficiency, unspecified; D50.8 Other iron deficiency anemias ==

== ENCOUNTER → 2017-10-21 | Outpatient (CLI) | payer MEDICARE | LOC: GMA 14:48 | PROVIDERS: ATTEND Family Medicine | DX: E03.8 Other specified hypothyroidism (principal) ==

== ENCOUNTER → 2017-12-20 | Outpatient (CLI) | payer MEDICARE | LOC: GMAL 10:42 | PROVIDERS: ATTEND Family Medicine | DX: E03.8 Other specified hypothyroidism (principal) ==

== ENCOUNTER → 2017-12-26 | Outpatient (CLI) | payer MEDICARE ==
[~2017-12-26] MED LIST: IPRATROPIUM/ALBUTEROL 3 ML VIAL NEB ONE
== END ==
LOC: RESP 10:13
PROVIDERS: ATTEND Family Medicine
DX: J44.9 Chronic obstructive pulmonary disease, unspecified (principal)
CPT/HCPCS: 94010; 94060; J7620

== ENCOUNTER → 2018-03-18 | Outpatient (CLI) | payer MEDICARE | LOC: GMAL 10:59 | PROVIDERS: ATTEND Family Medicine | DX: E03.8 Other specified hypothyroidism (principal); E78.4 Other hyperlipidemia ==

== ENCOUNTER → 2018-03-27 | Outpatient (CLI) | payer MEDICARE ==
--- NOTE | 2018-03-27 11:45 | US ---
EXAM DESCRIPTION: Abdomen,Limited to the right upper quadrant CLINICAL HISTORY: ELEVATED LFTS COMPARISON: CT abdomen and pelvis August 27, 2016 TECHNIQUE: Right upper quadrant ultrasound FINDINGS: Pancreas: Visualized portions of the pancreas are unremarkable. Bowel gas obscures some areas. Aorta/inferior vena cava: No aortic aneurysm. Normal inferior vena cava. Liver: The liver is coarse in texture with increased echogenicity consistent with hepatic steatosis or fibrofatty changes of cirrhosis. No focal liver lesion or intrahepatic bile duct dilatation. Positiveliver surface irregularity suggests cirrhotic scarring. Normal appearance of the portal vein and hepatic veins. Liver length of 19.2 cm is increased consistent with hepatomegaly. Gallbladder: Gallbladder appears normal with no intraluminal stones or wall thickening. Common bile duct: Normal caliber measuring 4.3 mm. Right kidney: Renal length is 10.2 cm. Normal cortical echogenicity. Cortical thickness is normal. No hydronephrosis is seen. No renal mass or shadowing calculus. IMPRESSION: Enlarged hyperechoic liver consistent with diffuse hepatic steatosis. Some images show irregular surface of the liver which may indicate developing cirrhosis. Correlate with other studies. Electronically signed by: Espinoza Vazquez MD 03/27/2018 11:44 AM CDT
--- NOTE | 2018-04-01 12:14 | MAM ---
EXAM DESCRIPTION: 3D Screening BILATERAL : Digital Mammography. CLINICAL HISTORY: 77 years Female SCREENING . No complaints and no personal history of breast cancer. Mother with breast cancer. Childbirth. Hysterectomy 32 years ago. Currently on HRT. Lifetime risk of developing breast cancer (Tyrer-Cuzick model)(%): 6.3 COMPARISON: Bilateral screening digital breast tomosynthesis 02/04/2017.. TECHNIQUE: Bilateral CC and MLO projection full-field images, Digital tomosynthesis mammographic technique. Bilateral digital 2-D full-field MLO images. CAD not utilized. FINDINGS: The breast parenchymal density pattern is: Scattered areas of fibroglandular density. No skin thickening or nipple retraction. Bilateral solitary microcalcifications. Bilateral fewer coarse calcifications. No new focal, stellate mass or density, focal asymmetry , and no suspicious microcalcifications bilaterally. Stable mammograms compared to prior study. IMPRESSION: Benign exam. BIRAD CATEGORY: 2 BENIGN FINDINGS. RECOMMENDATIONS: FOLLOW UP: Routine digital bilateral screening, one year interval from March 2018. Written communication explaining the IMPRESSION and follow-up, will be mailed to the patient and referring health care provider. According to the [employer], yearly mammograms are recommended starting at age 40 and continuing as long as a woman is in good health. Any breast change noted on a breast self-exam should be reported promptly to the patient's healthcare provider. Breast MRI is recommended for women with an approximately 20-25% or greater lifetime risk of breast cancer, including women with a strong family history of breast or ovarian cancer and women who have been treated for Hodgkin's disease. A negative mammographic report should not delay tissue diagnosis in patients with significant clinical history or physical findings. Extremely dense breast tissue limits the sensitivity of digital mammography. Electronically signed by: Edinson Neil MD 04/01/2018 12:13 PM CDT
== END ==
LOC: US 08:30
PROVIDERS: ATTEND Family Medicine
DX: Z12.31 Encounter for screening mammogram for malignant neoplasm of breast (principal); R94.5 Abnormal results of liver function studies

== ENCOUNTER → 2019-01-20 | Outpatient (CLI) | payer MEDICARE | LOC: GMAL 14:12 | PROVIDERS: ATTEND Family Medicine | DX: M06.9 Rheumatoid arthritis, unspecified (principal); M10.9 Gout, unspecified; R94.5 Abnormal results of liver function studies ==

== ENCOUNTER → 2019-04-27 | Outpatient (CLI) | payer MEDICARE | LOC: GMAL 17:39 | PROVIDERS: ATTEND Family Medicine | DX: M10.9 Gout, unspecified (principal); R94.5 Abnormal results of liver function studies ==

== ENCOUNTER → 2019-07-13 | Outpatient (CLI) | payer MEDICARE ==
--- NOTE | 2019-07-15 15:52 | MAM ---
EXAM DESCRIPTION: 3D Screening BILATERAL : Digital Mammography. CLINICAL HISTORY: 78 years Female SCREEN . No complaints. No personal history of breast cancer. Mother with breast cancer at age 80. Remote family history of breast cancer. Menarche age 12. Childbirth age 22. Hysterectomy age 32. Currently on HRT. Lifetime risk of developing breast cancer (Tyrer-Cuzick model)(%): 9.5. COMPARISON: Bilateral screening digital breast tomosynthesis March 2018 and January 2017. TECHNIQUE: Bilateral CC and MLO projection full-field images, digital tomosynthesis mammographic technique. Bilateral digital 2-D full-field MLO images. CAD available for 2-D images. FINDINGS: The breast parenchymal density pattern is: Scattered areas of fibroglandular density. No skin thickening or nipple retraction. Lateral solitary microcalcifications and coarse calcifications. Bilateral vascular calcifications. Skin mole markers on the left breast. Left axillary lymph node. Focal asymmetry in the upper outer quadrant of the posterior third of the left breast with radiolucent regions and single coarse calcification is more dense, posterior to the calcification since the prior study. No new focal, stellate mass or density, focal asymmetry , and no suspicious microcalcifications right breast. Taking into account, differences in mammographic technique. IMPRESSION: Increasing density of focal asymmetry in the left breast. BI-RADS CATEGORY: 0 - INCOMPLETE- Need additional imaging evaluation. FOLLOW-UP: Recall for additional imaging: Full-field LM left breast 2-D and tomosynthesis images. Spot compression 2-D and tomosynthesis of the region of interest left breast CC projection. Directed left breast ultrasound.. Written communication concerning the IMPRESSION and Follow-up, will be mailed to the patient and referring health care provider. Electronically signed by: Edinson Neil MD 07/15/2019 3:50 PM [employer]ITATION TANK WASHER
== END ==
LOC: MAMMO 13:49
PROVIDERS: ATTEND Family Medicine
DX: Z12.31 Encounter for screening mammogram for malignant neoplasm of breast (principal)

== ENCOUNTER → 2019-08-05 | Outpatient (CLI) | payer MEDICARE ==
--- NOTE | 2019-08-05 16:34 | US ---
EXAM DESCRIPTION: 3D Diagnostic, Left (accession [id number]), Breast,Left (accession [id number]): Ultrasound CLINICAL HISTORY: 78 yearsFemaleABNORMAL MAMMOGRAM focal asymmetry upper outer quadrant left breast. Lifetime risk of developing breast cancer (Tyrer-Cuzick model)(%): 9.5%. COMPARISON: Bilateral screening digital breast tomosynthesis July 13. TECHNIQUE: Left breast LM projection full-field images, and spot compression tomosynthesis, CC and LM projections, digital tomosynthesis technique. Left breast 2-D digital full-field images: LM and CC projections, spot compression 2-D images, LM and CC projections CAD available for 2-D images.. Transcutaneous scanning of the left breast utilizing tadeo-scale and Doppler modes. Scanning performed by the full roll inspector and Dr. Neil. FINDINGS: The breast parenchymal density pattern is: Scattered areas of fibroglandular density. No skin thickening or nipple retraction microcalcifications and coarse calcifications. Focal asymmetry seen on the prior screening examination is again visualized with spot compression 2-D and tomosynthesis images. No new focal, stellate mass or density, and no suspicious microcalcifications left breast. Ultrasound: Scanning of the upper-outer quadrant left breast. Mostly fibroglandular tissues with minimal fatty tissues. Circumscribed hypoechoic structure with mixed posterior acoustic shadowing. Wider than tall orientation, measures 4.9 x 2.9 x 2.6 mm. A second hypoechoic circumscribed object measures 6.0 x 3.7 x 2.9 mm. Mixed posterior acoustic shadowing and wider than tall orientation. These could represent fibroadenomas, complicated cyst, or lymph nodes. IMPRESSION: BI-RADS CATEGORY: 3 - PROBABLY BENIGN. Management: Short interval (6-month) diagnostic left breast 2-D/tomosynthesis and directed left breast ultrasound.. The FINDINGS and the FOLLOW-UP plan were reviewed by Dr. Neil during video conference with the patient after the examination. Written communication explaining the IMPRESSION and FOLLOW-UP will be mailed to the patient and referring care provider Electronically signed by: Edinson Neil MD 08/05/2019 4:33 PM CONSUMER CREDIT COUNSELOR
== END ==
LOC: US 08:51
PROVIDERS: ATTEND Family Medicine
DX: R92.8 Other abnormal and inconclusive findings on diagnostic imaging of breast (principal)
CPT/HCPCS: 76641; 77065; G0279

== ENCOUNTER → 2020-02-17 | Outpatient (CLI) | payer MEDICARE ==
--- NOTE | 2020-02-18 07:37 | MAM ---
EXAM DESCRIPTION: 3D Diagnostic, Left (accession [id number]), Breast,Left (accession [id number]): Ultrasound CLINICAL HISTORY: 79 yearsFemaleFOLLOW UP . Six-month Follow-up lesion upper outer quadrant left breast. Mother with breast cancer age 75. Remote family history of breast cancer. Menarche age 13. Childbirth age 22. Menopause age 40. Currently on HRT Lifetime risk of developing breast cancer (Tyrer-Cuzick model)(%): 5.4. COMPARISON: Left breast diagnostic tomosynthesis and ultrasound July 2019. Bilateral screening digital breast tomosynthesis June 2019. TECHNIQUE: Left breast LM, CC, and MLO projection full-field images, digital tomosynthesis technique. Left breast 2-D digital full-field images: LM, CC, and MLO projections. CAD available for 2-D images.. Transcutaneous scanning of the left breast utilizing tadeo-scale and Doppler modes. Scanning performed by the regional dedicated truck driver ; observation by Dr. Neil FINDINGS: The breast parenchymal density pattern is: Scattered areas of fibroglandular density. No skin thickening or nipple retraction scattered coarse and solitary microcalcifications. Focal asymmetry seen on the region of interest. No abnormal microcalcifications. Ultrasound: Scanning of the upper outer quadrant middle third left breast. Emphasis 6 cm from the nipple at 2:00. Mostly fibroglandular tissues with minimal fatty tissue. No dominant solid mass, no distinct cyst, no fluid collection, no large calcifications. No overlying skin changes. IMPRESSION: Benign exam. BIRAD CATEGORY: 2 BENIGN FINDINGS. RECOMMENDATIONS: FOLLOW UP: Return to routine digital bilateral mammographic screening, one year interval from June 2019. Written communication explaining the IMPRESSION and follow-up, will be mailed to the patient and referring health care provider. The FINDINGS and the FOLLOW-UP plan were reviewed in person with the patient after the examination. According to the [employer], yearly mammograms are recommended starting at age 40 and continuing as long as a woman is in good health. Any breast change noted on a breast self-exam should be reported promptly to the patient's healthcare provider. Breast MRI is recommended for women with an approximately 20-25% or greater lifetime risk of breast cancer, including women with a strong family history of breast or ovarian cancer and women who have been treated for Hodgkin's disease. A negative mammographic report should not delay tissue diagnosis in patients with significant clinical history or physical findings. Extremely dense breast tissue limits the sensitivity of digital mammography. Electronically signed by: Edinson Neil MD 02/18/2020 7:35 AM CDT
== END | disposition home or self-care (01) ==
LOC: MAMMO 11:00
PROVIDERS: ATTEND Family Medicine
DX: Z12.31 Encounter for screening mammogram for malignant neoplasm of breast (principal); R92.8 Other abnormal and inconclusive findings on diagnostic imaging of breast
CPT/HCPCS: 76641; 77065; G0279